=== PATIENT | male | born 1995 | race Two or more races ===

== ENCOUNTER 2024-02-02 21:41 | Emergency (ER) | payer SELFPAY ==
[~2024-02-02] VITALS: Ht 177.8 cm; Wt 95.0 kg
[2024-02-03] MEDS ORDERED: AMOX875T4 PO (02:00)
[2024-02-03] MEDS ORDERED: IBUP-1456 PO (02:00)
[2024-02-03] MEDS: KETOROLAC TROMETH 60MG/2ML VIAL IM ONE (03:30)
[2024-02-03] MEDS: cefTRIAXone SOD 1,000 MG VL IM ONE (03:31)
[2024-02-03 03:53] VITALS: BP 118/78; PULSE 88; RESP 20; TEMP 98.7; O2SAT 99
== END 2024-02-03 04:08 | disposition home or self-care (01) ==
LOC: ER 21:45
DX: S02.5XXA Fracture of tooth (traumatic), initial encounter for closed fracture (principal); Z79.899 Other long term (current) drug therapy; X58.XXXA Exposure to other specified factors, initial encounter; Y93.89 Activity, other specified; Y92.89 Other specified places as the place of occurrence of the external cause; Y99.8 Other external cause status
CPT/HCPCS: 96372; 99284; J0696; J1885